=== PATIENT | male | born 1980 | race African-American/Black ===

== ENCOUNTER 2017-05-11 11:17 | Emergency (ER) | payer BC, OTHER ==
[~2017-05-11] VITALS: Ht 165.1 cm; Wt 90.7 kg
[~2017-05-11 11:17] MED LIST: ATIVAN1 MG PO; NOHOMEMEDICATIONS; NORVASC10 MG PO
[2017-05-11 11:18] VITALS: BP 140/87
[2017-05-11] MEDS ORDERED: CLONIDINE0.1 PO (11:36)
[2017-05-11] MEDS ORDERED: BACTRIM DS TAB1 EACH PO (11:58)
== END 2017-05-11 12:19 | disposition home or self-care (01) ==
LOC: ER 11:17
DX: L03.011 Cellulitis of right finger (principal); I10 Essential (primary) hypertension; F17.210 Nicotine dependence, cigarettes, uncomplicated; F10.99 Alcohol use, unspecified with unspecified alcohol-induced disorder; Z91.018 Allergy to other foods